=== PATIENT | female | born 1950 | race Caucasian/White ===

== ENCOUNTER 2016-09-14 13:54 | Outpatient (CLI) | payer OTHER ==
--- NOTE | 2016-09-14 17:40 | DIAGNOSTIC IMAGING REPORT ---
PROCEDURE: MR BRAIN W/WO CONTRAST INDICATION: OPTIC NERVE PALLOR, initial encounter TECHNIQUE: Noncontrast T1, T2 sagittal and T2 coronal images of the brain. T2, FLAIR, gradient and diffusion axial images with ADC map. Pregadolinium thin-cut coronal STIR, T1 and axial T1 and T2 fat sat sequences through the orbits. Following 17 ml of intravenous gadolinium, thin-cut T1 sagittal, axial and coronal images of the orbits were obtained followed by FAT-SAT T1 axial images of the brain. COMPARISON: CT of the orbits 06/08/2016 FINDINGS: Normal sulci and ventricular system. Mild white matter chronic ischemic changes. No evidence of an acute CVA, hemorrhage, mass or abnormal parenchymal enhancement. Normal optic radiations. Normal posterior fossa. Normal vascular flow voids. Mastoids and sinuses are clear. Normal optic nerves, optic chiasm, extraocular muscles and globes. Orbital contents are unremarkable. IMPRESSION: 1. Normal orbits 2. Mild white matter chronic ischemic changes
--- NOTE | 2016-09-14 17:50 | DIAGNOSTIC IMAGING REPORT ---
PROCEDURE: MRA HEAD WITHOUT CONTRAST INDICATION: OPTIC NERVE PALLOR TECHNIQUE: Thin-cut gradient axial images with 3D MIP reconstructions in sagittal, axial, and coronal projections. COMPARISON: None. FINDINGS: There is moderate narrowing of the supraclinoid portion of the internal carotid arteries. Anterior and posterior circulation demonstrate normal caliber of the vessels without aneurysm, stenosis or occlusion. IMPRESSION: 1. Moderate narrowing of the supraclinoid portion of the internal carotid arteries bilaterally 2. Otherwise negative MRA.
== END 2016-09-14 23:00 ==
LOC: MRI SRH 13:54
DX: H47.299 Other optic atrophy, unspecified eye (principal)